=== PATIENT | female | born 1995 | race Caucasian/White ===

== ENCOUNTER 2016-10-30 17:49 | Emergency (ER) | payer OTHER ==
[~2016-10-30] VITALS: Ht 149.9 cm; Wt 69.9 kg
[2016-10-30 17:50] VITALS: BP_SYST 108
[2016-10-30] MEDS ORDERED: IBUPROFEN 800 MG TABLET PO ONE (18:00)
[2016-10-30] MEDS ORDERED: PREDNISONE 20 MG TABLET PO ONE (18:00)
[2016-10-30 18:32] VITALS: BP_SYST 110
== END 2016-10-30 18:32 | disposition home or self-care (01) ==
LOC: SED 17:49
DX: J02.9 Acute pharyngitis, unspecified (principal)
CPT/HCPCS: 81025; 99283; J7512

== ENCOUNTER 2016-11-05 10:11 | Emergency (ER) | payer OTHER ==
[~2016-11-05] VITALS: Ht 149.9 cm; Wt 69.9 kg
[2016-11-05 10:12] VITALS: BP_SYST 129
[2016-11-05 10:50] VITALS: BP_SYST 129
== END 2016-11-05 10:45 | disposition home or self-care (01) ==
LOC: SED 10:11
DX: J40 Bronchitis, not specified as acute or chronic (principal)
CPT/HCPCS: 99283